=== PATIENT | female | born 1970 | race Two or more races ===

== ENCOUNTER 2019-03-18 08:10 | Day surgery (SDC) | payer MEDICAID ==
[~2019-03-18] VITALS: Ht 157.5 cm; Wt 83.5 kg
[~2019-03-18 08:10] MED LIST: SODIUM CHLORIDE 0.9% 1,000 ML IV SCH
[2019-03-18] MEDS ORDERED: CIPROFLOXACIN 0.3% OPHTH SOLN 2.5ML RIGHTEYE SCH (08:30)
[2019-03-18] MEDS ORDERED: LACTATED RINGERS 1,000 ML IV SCH (09:00)
[2019-03-18] MEDS ORDERED: FAMO-135 PO (10:04)
[2019-03-18] MEDS ORDERED: ATOR40TA70 PO (10:04)
[2019-03-18 10:09] LABS: UCG SCREEN NEGATIVE
[2019-03-18] MEDS ORDERED: METHYLPREDNISOLONE SOD SUCC 40 MG/ML VIAL ONE (10:22)
[2019-03-18] MEDS ORDERED: TOBRAMYCIN SULFATE 80MG/2ML 30ML ONE (10:22)
[2019-03-18] MEDS ORDERED: MIDAZOLAM HCL 2 MG/2 ML VIAL ONE (10:28)
[2019-03-18] MEDS ORDERED: PROPOFOL 200MG/20ML VIAL IV ONE (10:41)
[2019-03-18] MEDS ORDERED: SODIUM CHLORIDE 0.9% 1,000 ML IV ONE (10:57)
[2019-03-18] MEDS ORDERED: HYDROMORPHONE HCL/PF 2MG/ML CPJ IV PRN (11:00)
[2019-03-18] MEDS ORDERED: ONDANSETRON HCL 4MG/2ML INJ IV PRN (11:00)
[2019-03-18] MEDS ORDERED: IBUPROFEN 600MG TABLET PO NR (11:30)
[2019-03-18] MEDS ORDERED: NEO/POLYMYX B SULF/DEXAMETH OPHTH OINT 3.5GM ONE (12:00)
[2019-03-18] MEDS ORDERED: TETRACAINE 0.5% OPHTH DROPS 4ML ONE (12:00)
[2019-03-18] MEDS ORDERED: BALANCED SALT IRRIG SOLN 15ML ONE (12:00)
[2019-03-18] MEDS ORDERED: LIDOCAINE HCL 2%/EPINEPHRINE 1:100,000 20 ML VIAL INFIL ONE (12:00)
[2019-03-18 12:07] VITALS: BP 124/76
== END 2019-03-18 12:41 | disposition home or self-care (01) ==
LOC: OR 08:10
PROVIDERS: ATTEND Ophthalmology
DX: H11.001 Unspecified pterygium of right eye (principal); E78.00 Pure hypercholesterolemia, unspecified; K21.9 Gastro-esophageal reflux disease without esophagitis; Z86.2 Personal history of diseases of the blood and blood-forming organs and certain disorders involving the immune mechanism; E66.3 Overweight
CPT/HCPCS: 65426; 81025; 88304; J2250; J2704; J2920; J3260; J3490

== ENCOUNTER 2020-01-14 07:31 | Day surgery (SDC) | payer MEDICAID ==
[~2020-01-14] VITALS: Ht 156.2 cm; Wt 83.0 kg
[~2020-01-14 07:31] MED LIST changes: +ATOR40TA70 PO; +DICL75TA5 MT; +FAMO-135 PO; +FOLI-43 MT; +GABA300S PO; +HYDR200T35 MT; +METH2.5T PO; -SODIUM CHLORIDE 0.9% 1,000 ML IV SCH
[2020-01-14] MEDS ORDERED: LACTATED RINGERS 1,000 ML IV SCH (08:15)
[2020-01-14] MEDS ORDERED: CIPROFLOXACIN 0.3% OPHTH SOLN 2.5ML RIGHTEYE ONE (08:15)
[2020-01-14 08:38] LABS: CLARITY URINE CLEAR (CLEAR); COLOR URINE YELLOW (YELLOW); KETONES URINE NEGATIVE (NEGATIVE); LEUKOCYTE ESTERASE URINE NEGATIVE (NEGATIVE); NITRITE URINE NEGATIVE (NEGATIVE); OCCULT BLOOD URINE NEGATIVE (NEGATIVE); PROTEIN URINE NEGATIVE (NEGATIVE); SPECIFIC GRAVITY URINE 1.018 (1.005-1.030); UROBILINOGEN URINE 0.2 E.U./dL (0.2-1.0)
[2020-01-14] MEDS ORDERED: TOBRAMYCIN SULFATE 80MG/2ML 30ML ONE (08:38)
[2020-01-14] MEDS ORDERED: METHYLPREDNISOLONE SOD SUCC 40 MG/ML VIAL ONE (08:38)
[2020-01-14 08:40] LABS: UCG SCREEN NEGATIVE
[2020-01-14] MEDS ORDERED: ACET650T37 PO (09:58)
[2020-01-14] MEDS ORDERED: MIDAZOLAM HCL 2 MG/2 ML VIAL ONE (10:05)
[2020-01-14] MEDS ORDERED: HYDROMORPHONE HCL/PF 2MG/ML CPJ IV PRN (10:30)
[2020-01-14] MEDS ORDERED: ONDANSETRON HCL 4MG/2ML INJ IV PRN (10:30)
[2020-01-14] MEDS ORDERED: HYDRALAZINE 20MG/ML VIAL IV PRN (10:30)
[2020-01-14 11:14] VITALS: BP 123/76
[2020-01-14] MEDS ORDERED: TETRACAINE 0.5% OPHTH DROPS 4ML ONE (12:11)
[2020-01-14] MEDS ORDERED: BUPIVACAINE HCL/PF 0.75% (7.5MG/ML) 10ML ONE (12:11)
[2020-01-14] MEDS ORDERED: CIPROFLOXACIN 0.3% OPHTH SOLN 2.5ML ONE (12:11)
[2020-01-14] MEDS ORDERED: BALANCED SALT IRRIG SOLN 15ML ONE (12:11)
[2020-01-14] MEDS ORDERED: LIDOCAINE HCL 2%/EPINEPHRINE 1:100,000 20 ML VIAL INFIL ONE (12:11)
== END 2020-01-14 13:00 | disposition home or self-care (01) ==
LOC: OR 07:31
PROVIDERS: ATTEND Ophthalmology
DX: H11.001 Unspecified pterygium of right eye (principal); E78.00 Pure hypercholesterolemia, unspecified; M06.9 Rheumatoid arthritis, unspecified; Z79.899 Other long term (current) drug therapy; Z98.891 History of uterine scar from previous surgery
CPT/HCPCS: 65420; 81003; 81025; 88304; J1170; J2250; J2405; J2920; J3260; J3490